=== PATIENT | female | born 2000 | race Hispanic/Latino ===

== ENCOUNTER 2022-03-15 22:31 | Day surgery (SDC) | payer OTHER ==
[2022-03-15 23:11] VITALS: BMI 38.2
[2022-03-15] MEDS ORDERED: hydrALAZINE 20 MG/ML VIAL SLOW IVP PRN (23:46)
[2022-03-16 00:38] LABS: Bilirubin Neg (Negative); Blood, Urine 250 (Negative); Clarity Clear (Clear); Glucose, Urine (Dipstick) >=1000 mg/dL (Negative); Ketone, Urine Negative (Negative); Leukocyte Negative (Negative); Nitrite Negative (Negative); Protein, Urine (Dipstick) Negative (Neg-Trace); Urobilinogen Normal mg/dL (Less than 2)
[2022-03-16 00:40] LABS: Urine Culture Reflex No No
[2022-03-16 00:49] LABS: Bacteria/HPF Rare-Few HPF (None Seen); Renal Epithelial 0-3 HPF (None Seen)
== END 2022-03-16 00:49 | disposition home or self-care (01) ==
LOC: CSHLD/OP 22:31
PROVIDERS: ATTEND Obstetrics & Gynecology
DX: O23.593 Infection of other part of genital tract in pregnancy, third trimester (principal); O26.853 Spotting complicating pregnancy, third trimester; Z3A.30 30 weeks gestation of pregnancy
CPT/HCPCS: 51701; 81001; 87480; 87510; 87660; 99283

== ENCOUNTER 2022-05-05 04:12 | Day surgery (SDC) | payer OTHER ==
[2022-05-05 04:40] VITALS: BMI 58.1
[2022-05-05] MEDS ORDERED: hydrALAZINE 20 MG/ML VIAL SLOW IVP PRN (06:28)
== END 2022-05-05 06:47 | disposition home or self-care (01) ==
LOC: CSHERS 04:12
PROVIDERS: ATTEND Obstetrics & Gynecology
DX: O47.1 False labor at or after 37 completed weeks of gestation (principal); O99.013 Anemia complicating pregnancy, third trimester; D64.9 Anemia, unspecified; Z3A.37 37 weeks gestation of pregnancy; Z79.899 Other long term (current) drug therapy; Z98.890 Other specified postprocedural states
CPT/HCPCS: 99282

== ENCOUNTER 2022-05-10 07:33 | Outpatient (CLI) | payer OTHER ==
[2022-05-10 09:04] LABS: #Eosinphils 0.1 10x3/uL (0.0-0.5); #Monocytes 0.6 10x3/uL (0.0-1.1); #Neutrophils 6.1 10x3/uL (1.5-8.4); %Basophils 0.4 % (0.0-2.0); %Eosinophils 1.3 % (0.0-6.0); %Lymphocytes 25.7 % (18.0-47.0); %Monocytes 6.7 % (0.0-10.0); %Neutrophils 65.5 % (40.0-75.0); Hemoglobin 9.2 g/dL (12.0-15.5); Mean Corpuscular HGB CONC 31.3 g/dL (32.0-36.0); Mean Corpuscular Hemoglobin 23.8 pg (27.0-33.0); Mean Corpuscular Volume 76.2 fl (81.6-98.3); Platelet Count 278 10x3/uL (150-450); Red Blood Cell (RBC) Count 3.86 10x6/uL (3.90-5.03); White Blood Cell (WBC) Count 9.4 10x3/uL (3.5-10.5)
[2022-05-10 09:23] LABS: SARS-CoV-2 NAA Rapid Test Not Detected (NotDetected)
[2022-05-10 09:42] LABS: HBSAg Index 0.25 S/CO (0-0.99); Hep B Surf Ag Non-Reactive S/CO (NonReactive); Syphilis Antibody Nonreactive (Nonreactive); Syphilis Antibody Index 0.04 S/CO (<1.00 Non-Reactive)
== END 2022-05-10 07:34 | disposition home or self-care (01) ==
LOC: CSHLAB 07:33
PROVIDERS: ATTEND Obstetrics & Gynecology
DX: Z01.812 Encounter for preprocedural laboratory examination (principal); Z20.822 Contact with and (suspected) exposure to COVID-19; O34.219 Maternal care for unspecified type scar from previous cesarean delivery
CPT/HCPCS: 36415; 85025; 86780; 86900; 86901; 87340; U0002

== ENCOUNTER 2022-05-13 05:33 | Inpatient (IN) | payer OTHER ==
[2022-05-13 05:38] VITALS: BMI 39.0
[2022-05-13] MEDS ORDERED: hydrALAZINE 20 MG/ML VIAL SLOW IVP PRN ×2 (05:39→11:56)
[2022-05-13] MEDS ORDERED: CEFAZOLIN 2 GM in Sodium Chloride 0.9% 100 ML IVPB SCH (05:39)
[2022-05-13] MEDS ORDERED: Promethazine HCl 25 MG/ML VIAL IM PRN ×2 (05:39→07:02)
[2022-05-13] MEDS ORDERED: Bicitra 30 ML UDCUP PO PRN (05:39)
[2022-05-13] MEDS ORDERED: Famotidine/PF 20 mg/2ml Vial SLOW IVP PRN (05:39)
[2022-05-13] MEDS ORDERED: Ondansetron PF 4 MG/2 ML Vial IVP PRN (05:39)
[2022-05-13] MEDS ORDERED: Lactated Ringer's 1,000 ML IV SCH (06:00)
[2022-05-13] MEDS ORDERED: Promethazine HCl 25 MG SUPP PR PRN (07:02)
[2022-05-13] MEDS ORDERED: Naloxone HCl 0.4 mg/ml Vial IV PRN (07:02)
[2022-05-13] MEDS ORDERED: Ondansetron HCl/PF 4 MG/2 ML Vial IVP PRN (07:02)
[2022-05-13] MEDS ORDERED: Fentanyl 100 MCG/2 ML VIAL SLOW IVP PRN (07:02)
[2022-05-13] MEDS ORDERED: Ketorolac Tromethamine 30 MG/ML VIAL IVP PRN (07:02)
[2022-05-13] MEDS ORDERED: diphenhydrAMINE 50 MG/ML VIAL IVP PRN (07:02)
[2022-05-13] MEDS ORDERED: Naloxone HCl 0.4 mg/ml Vial IVP PRN ×2 (07:02)
[2022-05-13] MEDS ORDERED: Meperidine HCl/PF 25 MG/ML VIAL SLOW IVP PRN (07:02)
[2022-05-13] MEDS ORDERED: Moisturizing Cream (Eucerin) 113 GM JAR TOP PRN (07:02)
[2022-05-13] MEDS ORDERED: Communication Order-Pharmacy FS SCH (07:15)
[2022-05-13] MEDS ORDERED: Ketorolac Tromethamine 30 MG/ML VIAL IVP SCH (07:15)
[2022-05-13] MEDS ORDERED: Oxytocin 10 UNITS/ML VIAL ONE (07:20)
[2022-05-13] MEDS ORDERED: PHENYLEPHRINE-NS 100 MCG/ML 10 ML SYRINGE ONE (07:20)
[2022-05-13] MEDS ORDERED: Phenylephrine 40 MG/NS 250 ML 250 ML ONE (07:20)
[2022-05-13] MEDS ORDERED: Ketorolac Tromethamine 30 MG/ML VIAL ONE (07:20)
[2022-05-13] MEDS ORDERED: ePHEDrine Sulfate 50 MG/10 ML VIAL ONE (07:26)
[2022-05-13] MEDS ORDERED: Morphine PF 10 MG/10 ML VIAL ONE (07:27)
[2022-05-13] MEDS ORDERED: Midazolam HCl 2 mg/2 ml Vial ONE (08:39)
[2022-05-13] MEDS: Ondansetron PF 4 MG/2 ML Vial IVP PRN ×2 (09:34→14:13)
[2022-05-13] MEDS ORDERED: diphenhydrAMINE 25 MG CAP PO PRN (11:56)
[2022-05-13] MEDS ORDERED: Boostrix 0.5 ML (Tdap) VIAL (>/=7 yrs of age) IM ONE (11:56)
[2022-05-13] MEDS ORDERED: NS w/ Oxytocin 30 units 500 ML IV SCH (11:56)
[2022-05-13] MEDS ORDERED: Misoprostol 200 MCG TAB PR PRN (11:56)
[2022-05-13] MEDS: Ferrous Sulfate 325 MG TAB PO SCH (21:56)
[2022-05-13] MEDS ORDERED: HYDROcodone/Acetaminophen 5/325 mg Tablet PO PRN (23:59)
[2022-05-14] MEDS: HYDROcodone/Acetaminophen 5/325 mg Tablet PO PRN ×3 (04:45→18:23)
[2022-05-14 05:34] LABS: Hemoglobin 7.7 g/dL (12.0-15.5); Mean Corpuscular HGB CONC 32.4 g/dL (32.0-36.0); Mean Corpuscular Hemoglobin 24.5 pg (27.0-33.0); Mean Corpuscular Volume 75.8 fl (81.6-98.3); Mean Platelet Volume 11.1 fl (7.4-10.4); Platelet Count 233 10x3/uL (150-450); RBC Distribution Width 14.1 % (11.5-14.5); Red Blood Cell (RBC) Count 3.14 10x6/uL (3.90-5.03)
[2022-05-14] MEDS: Ferrous Sulfate 325 MG TAB PO SCH ×2 (09:38→21:51)
[2022-05-14] MEDS: Prenatal Vitamin 1 TAB PO SCH (09:38)
[2022-05-14] MEDS: Ibuprofen 800 MG TAB PO SCH ×2 (14:17→21:51)
[2022-05-14] MEDS: Simethicone Chewable 80 MG TAB PO PRN (21:51)
[2022-05-14] MEDS: Dextrose 5%-Lactated Ringers 1,000 ML IV SCH (23:37)
[2022-05-15] MEDS: HYDROcodone/Acetaminophen 5/325 mg Tablet PO PRN (03:39)
[2022-05-15] MEDS: Dextrose 5%-Lactated Ringers 1,000 ML IV SCH (03:43)
[2022-05-15] MEDS: Simethicone Chewable 80 MG TAB PO PRN (05:15)
[2022-05-15] MEDS: Ibuprofen 800 MG TAB PO SCH (05:15)
[2022-05-15 07:43] VITALS: BP 106/55; TEMP 99.2
[2022-05-15] MEDS: Prenatal Vitamin 1 TAB PO SCH (08:05)
[2022-05-15] MEDS: Ferrous Sulfate 325 MG TAB PO SCH (08:05)
== END 2022-05-15 10:05 | disposition home or self-care (01) | DRG 788 ==
LOC: CSHLD 05:33 → CSHPP 11:37
PROVIDERS: ADMIT Obstetrics & Gynecology; ATTEND Obstetrics & Gynecology
PROC: 10D00Z1 Extraction of Products of Conception, Low, Open Approach (ICD-10-PCS; principal; 2022-05-13)
DX: O34.211 Maternal care for low transverse scar from previous cesarean delivery (principal); Z3A.39 39 weeks gestation of pregnancy; Z37.0 Single live birth; D64.9 Anemia, unspecified; O99.02 Anemia complicating childbirth; F41.9 Anxiety disorder, unspecified; F32.A Depression, unspecified; O99.344 Other mental disorders complicating childbirth; Z79.899 Other long term (current) drug therapy; O99.62 Diseases of the digestive system complicating childbirth; K66.0 Peritoneal adhesions (postprocedural) (postinfection); O69.81X0 Labor and delivery complicated by cord around neck, without compression, not applicable or unspecified
CPT/HCPCS: 36415; 36416; 51702; 85027; 86850; 86900; 86901; J0690; J1885; J2250; J2274; J2405; J2550; J2590; J3490; J7120; S0028